=== PATIENT | female | born 1955 | race Caucasian/White ===

== ENCOUNTER 2018-01-31 07:33 | Day surgery (SDC) | payer OTHER ==
[2018-01-24 11:54] VITALS: BMI 31.1
[2018-01-31] MEDS ORDERED: ONDANSETRON 4 MG/2 ML VIAL ONE (09:05)
[2018-01-31] MEDS ORDERED: KETOROLAC TROMETHAMINE 30 MG/1 ML VIAL ONE (09:05)
[2018-01-31] MEDS ORDERED: DEXAMETHASONE SOD PHOSPHATE 4 MG/1 ML VIAL ONE (09:05)
[2018-01-31] MEDS ORDERED: ceFAZolin SODIUM 1 GM VIAL ONE (09:05)
[2018-01-31] MEDS ORDERED: MIDAZOLAM HCL 2 MG/2 ML SINGLE DOSE VIAL ONE ×2 (09:06→09:10)
[2018-01-31] MEDS ORDERED: PROPOFOL 20 ML ONE ×2 (09:06)
[2018-01-31] MEDS ORDERED: LIDOCAINE HCL 2% (20ML MULTI-DOSE VIAL) NR ONE (09:08)
[2018-01-31] MEDS ORDERED: SUCCINYLCHOLINE CHLORIDE 200 MG/10 ML VIAL ONE (09:09)
--- NOTE | 2018-01-31 10:03 | OP ---
DATE OF OPERATION: 01/31/2018 PREOPERATIVE DIAGNOSIS: Right Carpal Tunnel Syndrome POSTOPERATIVE DIAGNOSIS: Right Carpal Tunnel Syndrome PROCEDURE: Right Carpal Tunnel Release ([id number]) SURGEON: Dr. Eduardo To ENAMEL BURNER: SHAHEED Enriquez FINDINGS: Thickened transverse carpal ligament impingement upon median nerve. PROCEDURE: Under sterile conditions, right the upper extremity was prepped and draped in a sterile fashion. Incision was made along the longitudinal portion of the carpal tunnel. A longitudinal incision was made along the proximal portion of the palm, following the palm crease. This was taken down to the transcarpal ligament, which was released initially with scalpel and then extended proximally and distally using blunt tenotomy scissors. The median nerve was identified and completely released from impingement by the transcarpal ligament. The wound was then irrigated with copious amounts of irrigation. Skin was closed with 5-0 nylon in single interrupted sutures. Saad [id number]
[2018-01-31 10:29] VITALS: TEMP 97.9
[2018-01-31 10:32] VITALS: BP 117/68; PULSE 68
[2018-01-31] MEDS ORDERED: DESFLURANE GAS 240 ML BOTTLE IH ONE (10:55)
== END 2018-01-31 10:35 | disposition home or self-care (01) ==
LOC: FASU 07:33
PROVIDERS: ATTEND Orthopaedic Surgery
PROC: 01N50ZZ Release Median Nerve, Open Approach (ICD-10-PCS; principal; 2018-01-31 09:33)
DX: G56.01 Carpal tunnel syndrome, right upper limb (principal)